=== PATIENT | male | born 1985 | race Caucasian/White ===

== ENCOUNTER → 2019-09-17 | Outpatient (CLI) | payer OTHER ==
[~2019-09-17] MED LIST: GADOTERATE 7.5 MMOL/15ML VIAL. IVP ONE
--- NOTE | 2019-09-17 11:32 | KCIC ---
EXAMINATION: Magnetic resonance imaging (MRI) of the brain and brainstem with and without contrast with dedicated views of the Temporal Bones and Internal Auditory Canals (IACs) DATE: 09/17/2019 9:30 AM INDICATION: BILATERAL HEARING LOSS. Bilat hearing loss due to noise exposure in the . TECHNIQUE: Multiplanar, multisequence MR images were performed with and without contrast. Multiple T1 + T2 weighted images were obtained through temporal bone and IACs. 3D T2 weighted images were also obtained and reconstructed in coronal and sagittal planes. 12 cc of Dotarem contrast was given intravenously. COMPARISON: None. FINDINGS: Both 7th and 8th nerve complexes are well visualized and normal. No mass within the internal auditory canal or cerebellopontine angle. The cochlear forms are normal with normal fluid signal within cochlea. The semicircular canals are normal. No abnormal enhancement. No acute infarction. No acute or chronic hemorrhage. The ventricles are normal in size and position without hydrocephalus. The scalp and calvarium are normal. The pituitary and sella are normal. No Chiari malformation. The visualized upper cervical spine is normal. The visualized portions of the orbits, mastoids and paranasal sinuses are normal. Normal flow voids in the distal internal carotid and basilar arteries indicate patency. IMPRESSION: Normal MRI of the internal auditory canals. No mass or abnormal enhancement. Electronically signed by: Hernandez Mccallum MD (09/17/2019 11:29 AM) [id number]
== END | disposition home or self-care (01) ==
LOC: KCIC MRI 09:21
PROVIDERS: ATTEND Family Medicine
DX: H91.93 Unspecified hearing loss, bilateral (principal)
CPT/HCPCS: 70553; A9575